=== PATIENT | male | born 1975 | race Caucasian/White ===

== ENCOUNTER 2017-06-28 19:18 | Emergency (ER) | payer BC, OTHER ==
[2017-06-28 20:43] VITALS: BP 123/68
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
--- NOTE | 2017-06-28 21:04 | RAD ---
Indication: Left lower lobe Rales with cough. 2 views of the chest are reviewed. Airspace disease in left lower lobe with air-fluid level in the lingula is noted. Findings are consistent with pneumonia. A lung abscess is not excluded. IMPRESSION: Left lower lobe pneumonia. Air-fluid level appears to be in the lingula and a lung abscess is not excluded.
== END 2017-06-28 21:10 | disposition short-term general hospital (02) ==
LOC: UCCORT 19:18
DX: J85.1 Abscess of lung with pneumonia (principal)
CPT/HCPCS: 71020; 99202; G0463